=== PATIENT | male | born 1935 | race Asian ===

== ENCOUNTER → 2016-10-08 | Outpatient (CLI) | payer MEDICARE ==
[~2016-10-08] MED LIST: ASPI-496 PO; ATOR40TA78 PO; CARV3.122 PO; DOCU100C8 PO; FURO-93 PO; LOSA50TA6 PO; METF500T4 PO; POTA10TA5 PO; POTA20TA14 PO; PRED10TA PO
== END | disposition home or self-care (01) ==
LOC: CFH 13:29
PROVIDERS: ATTEND Internal Medicine Critical Care Medicine
DX: J84.9 Interstitial pulmonary disease, unspecified (principal)
CPT/HCPCS: 71250

== ENCOUNTER 2017-10-04 16:51 | Inpatient (IN) | payer MEDICARE ==
[~2017-10-04] VITALS: Ht 160 cm; Wt 86.3 kg
[~2017-10-04 16:51] MED LIST changes: +DOCU100C33 PO; -DOCU100C8 PO; -METF500T4 PO; +METF500T5 PO
[2017-10-04] MEDS ORDERED: SODIUM CHLORIDE FLUSH 10ML SYR IVF ONE (17:30)
[2017-10-04] MEDS ORDERED: ALBUTEROL/IPRATROPIUM 2.5MG/0.5MG, 3 ML NPPB ONE (17:30)
[2017-10-04] MEDS ORDERED: ALBUTEROL/IPRATROPIUM 2.5MG/0.5MG, 3 ML ONE (17:36)
[2017-10-04] MEDS ORDERED: TAMS0.4C2 PO (17:43)
[2017-10-04] MEDS ORDERED: GLIP5TAB10 PO (17:43)
[2017-10-04] MEDS ORDERED: BUDE10.22 PO (17:44)
[2017-10-04] MEDS ORDERED: ALBU18HF PO (17:45)
[2017-10-04 18:06] LABS: BASOPHILS # (AUTO) 0.03 x10^3/uL (0-0.1); BASOPHILS % (AUTO) 0 % (0-1); EOSINOPHILS # (AUTO) 0.35 x10^3/uL (0-0.4); EOSINOPHILS % (AUTO) 4 % (1-7); LYMPHOCYTES # (AUTO) 1.72 x10^3/uL (1-3.4); LYMPHOCYTES % (AUTO) 19 % (22-44); MD NO; MEAN CORPUSCULAR HEMOGLOBIN 31.3 pg (27.5-34.5); MEAN CORPUSCULAR HGB CONC 33.4 g/dL (33.2-36.2); MEAN CORPUSCULAR VOLUME 93.7 fL (81-97); MEAN PLATELET VOLUME 8.8 fL (7.4-10.4); MONOCYTES # (AUTO) 0.73 x10^3/uL (0.2-0.8); MONOCYTES % (AUTO) 8 % (2-9); NEUTROPHILS # (AUTO) 6.34 x10^3/uL (1.8-6.8); NEUTROPHILS % (AUTO) 69 % (42-75); PLATELET COUNT 232 x10^3/uL (130-400); RED BLOOD COUNT 4.52 x10^6/uL (4.38-5.82); RED CELL DISTRIBUTION WIDTH 13.5 % (9.4-14.8)
[2017-10-04 18:10] LABS: ALBUMIN 3.5 g/dL (3.4-5.0); ANION GAP 7 mmol/L (5-15); CALCIUM 8.6 mg/dL (8.5-10.1); CHLORIDE 97 mmol/L (98-107); CREATININE 1.97 mg/dL (0.7-1.3)
[2017-10-04 18:21] LABS: TROPONIN I < 0.015 ng/mL (0.000-0.045)
[2017-10-04] MEDS ORDERED: SODIUM CHLORIDE FLUSH 10ML SYR IVF PRN (19:00)
[2017-10-04] MEDS ORDERED: methylPREDNISolone SOD SUCC 125 MG/2 ML IVP ONE (19:00)
[2017-10-04] MEDS ORDERED: methylPREDNISolone SOD SUCC 125 MG/2 ML ONE (19:01)
[2017-10-04] MEDS ORDERED: SODIUM CHLORIDE 0.9% 1,000 ML IV SCH (19:15)
[2017-10-04] MEDS ORDERED: ONDANSETRON 2MG/ML, 2ML IVPush PRN (19:30)
[2017-10-04] MEDS ORDERED: BISACODYL 10 MG SUPP PR ONE (19:30)
[2017-10-04] MEDS ORDERED: ACETAMINOPHEN 325 MG TABLET PO PRN (19:30)
[2017-10-04] MEDS ORDERED: POLYETHYLENE GLYCOL 17 GM PACKET PO PRN (19:30)
[2017-10-04] MEDS ORDERED: hydrALAzine 20 MG/ML, 1ML IVPush PRN (19:30)
[2017-10-04 19:42] VITALS: BP 108/60
[2017-10-04] MEDS ORDERED: ALBUTEROL SULFATE 2.5 MG/3 ML HHN PRN (20:00)
[2017-10-04] MEDS ORDERED: ALBUTEROL SULFATE 2.5 MG/3 ML NPPB PRN (20:30)
[2017-10-04] MEDS: HEPARIN 5,000 UNITS/ML, 1ML SQ SCH (22:24)
[2017-10-04] MEDS: ATORVASTATIN 40 MG TABLET PO SCH (22:24)
[2017-10-04] MEDS: CARVEDILOL 25 MG TABLET PO SCH (22:25)
[2017-10-04] MEDS: INSULIN LISPRO 100 UNITS/ML, PEN SQ-INSULIN SCH (22:26)
[2017-10-04 23:31] LABS: MICROSCOPIC NOT IND
[2017-10-04 23:37] LABS: CULTURE INDICATED? NO
[2017-10-05 02:51] VITALS: BP 145/79
[2017-10-05 04:55] LABS: BASOPHILS # (AUTO) 0.02 x10^3/uL (0-0.1); BASOPHILS % (AUTO) 0 % (0-1); EOSINOPHILS % (AUTO) 0 % (1-7); LYMPHOCYTES # (AUTO) 1.02 x10^3/uL (1-3.4); LYMPHOCYTES % (AUTO) 13 % (22-44); MD NO; MEAN CORPUSCULAR HEMOGLOBIN 30.9 pg (27.5-34.5); MEAN CORPUSCULAR HGB CONC 32.9 g/dL (33.2-36.2); MEAN CORPUSCULAR VOLUME 93.9 fL (81-97); MEAN PLATELET VOLUME 9.2 fL (7.4-10.4); MONOCYTES # (AUTO) 0.04 x10^3/uL (0.2-0.8); MONOCYTES % (AUTO) 1 % (2-9); NEUTROPHILS # (AUTO) 6.55 x10^3/uL (1.8-6.8); NEUTROPHILS % (AUTO) 86 % (42-75); PLATELET COUNT 221 x10^3/uL (130-400); RED BLOOD COUNT 4.13 x10^6/uL (4.38-5.82); RED CELL DISTRIBUTION WIDTH 13.6 % (9.4-14.8)
[2017-10-05 05:04] LABS: ANION GAP 7 mmol/L (5-15); CALCIUM 8.4 mg/dL (8.5-10.1); CHLORIDE 99 mmol/L (98-107)
[2017-10-05 05:05] LABS: CREATININE 1.89 mg/dL (0.7-1.3)
[2017-10-05 07:52] VITALS: BP 129/78
[2017-10-05] MEDS: HEPARIN 5,000 UNITS/ML, 1ML SQ SCH ×2 (08:11→16:28)
[2017-10-05] MEDS: INSULIN LISPRO 100 UNITS/ML, PEN SQ-INSULIN SCH ×4 (08:12→20:56)
[2017-10-05] MEDS: ASPIRIN 81 MG TABLET EC PO SCH (08:12)
[2017-10-05] MEDS: CARVEDILOL 25 MG TABLET PO SCH ×2 (08:12→16:30)
[2017-10-05] MEDS: TAMSULOSIN 0.4 MG CAP.ER.24H PO SCH (08:12)
[2017-10-05] MEDS ORDERED: MAGNESIUM SULFATE IN WATER 50 ML IV ONE (10:30)
[2017-10-05 10:49] LABS: HEMOGLOBIN A1C 8.7 % (4.2-6.3)
[2017-10-05] MEDS: SODIUM CHLORIDE 0.9% 1,000 ML IV SCH ×2 (11:12→18:30)
[2017-10-05 14:00] VITALS: BP 95/55
[2017-10-05] MEDS: FLUTICASONE/VILANTEROL 100-25MCG/INH INH SCH (15:12)
[2017-10-05 19:37] VITALS: BP 106/62
[2017-10-05] MEDS: ATORVASTATIN 40 MG TABLET PO SCH (20:53)
[2017-10-06] MEDS: HEPARIN 5,000 UNITS/ML, 1ML SQ SCH ×2 (00:05→09:09)
[2017-10-06 00:58] VITALS: BP 113/72
[2017-10-06 05:15] LABS: ANION GAP 4 mmol/L (5-15); CALCIUM 8.2 mg/dL (8.5-10.1); CHLORIDE 105 mmol/L (98-107)
[2017-10-06 05:18] LABS: CREATININE 1.57 mg/dL (0.7-1.3)
[2017-10-06 05:20] LABS: BASOPHILS # (AUTO) 0.02 x10^3/uL (0-0.1); BASOPHILS % (AUTO) 0 % (0-1); EOSINOPHILS # (AUTO) 0.08 x10^3/uL (0-0.4); EOSINOPHILS % (AUTO) 1 % (1-7); LYMPHOCYTES # (AUTO) 2.16 x10^3/uL (1-3.4); LYMPHOCYTES % (AUTO) 19 % (22-44); MD NO; MEAN CORPUSCULAR HEMOGLOBIN 31.1 pg (27.5-34.5); MEAN CORPUSCULAR HGB CONC 32.8 g/dL (33.2-36.2); MEAN CORPUSCULAR VOLUME 94.9 fL (81-97); MONOCYTES # (AUTO) 0.94 x10^3/uL (0.2-0.8); MONOCYTES % (AUTO) 8 % (2-9); NEUTROPHILS # (AUTO) 8.36 x10^3/uL (1.8-6.8); NEUTROPHILS % (AUTO) 72 % (42-75); PLATELET COUNT 211 x10^3/uL (130-400); RED BLOOD COUNT 3.91 x10^6/uL (4.38-5.82); RED CELL DISTRIBUTION WIDTH 13.6 % (9.4-14.8)
[2017-10-06] MEDS: INSULIN LISPRO 100 UNITS/ML, PEN SQ-INSULIN SCH ×2 (07:29→11:08)
[2017-10-06 08:06] VITALS: BP 104/64
[2017-10-06] MEDS: TAMSULOSIN 0.4 MG CAP.ER.24H PO SCH (09:09)
[2017-10-06] MEDS: CARVEDILOL 25 MG TABLET PO SCH (09:09)
[2017-10-06] MEDS: ASPIRIN 81 MG TABLET EC PO SCH (09:09)
[2017-10-06] MEDS: FLUTICASONE/VILANTEROL 100-25MCG/INH INH SCH (09:10)
[2017-10-06] MEDS ORDERED: FUROSEMIDE 20 MG TABLET PO SCH (10:30)
[2017-10-06] MEDS ORDERED: POLY17PO5 PO (11:51)
[2017-10-06] MEDS ORDERED: DOCU-131 PO (11:51)
[2017-10-06 13:56] VITALS: BP 93/56
== END 2017-10-06 14:28 | disposition home or self-care (01) | DRG 388 ==
LOC: ED 18:02 → EDIP 18:51 → 3NW 19:40
PROVIDERS: ADMIT Hospitalist; ATTEND Hospitalist
DX: K56.0 Paralytic ileus (principal); N17.0 Acute kidney failure with tubular necrosis; J96.11 Chronic respiratory failure with hypoxia; J44.1 Chronic obstructive pulmonary disease with (acute) exacerbation; Z99.81 Dependence on supplemental oxygen; Z87.891 Personal history of nicotine dependence; Z87.01 Personal history of pneumonia (recurrent); E11.22 Type 2 diabetes mellitus with diabetic chronic kidney disease; G47.33 Obstructive sleep apnea (adult) (pediatric); E11.65 Type 2 diabetes mellitus with hyperglycemia; R00.0 Tachycardia, unspecified; N18.9 Chronic kidney disease, unspecified; N40.0 Benign prostatic hyperplasia without lower urinary tract symptoms; E83.42 Hypomagnesemia; I12.9 Hypertensive chronic kidney disease with stage 1 through stage 4 chronic kidney disease, or unspecified chronic kidney disease; T38.0X5A Adverse effect of glucocorticoids and synthetic analogues, initial encounter; Z85.038 Personal history of other malignant neoplasm of large intestine; Z90.49 Acquired absence of other specified parts of digestive tract
CPT/HCPCS: 36415; 71046; 74018; 80048; 81003; 82040; 82962; 83036; 83735; 84100; 84484; 85025; 93005; 93306; 94640; 96374; J1644; J7620; J1815; J2930; J7030

== ENCOUNTER → 2018-04-07 | Outpatient (CLI) | payer MEDICARE ==
[~2018-04-07] MED LIST changes: +ALBU18HF PO; +BUDE10.22 PO; +DOCU-131 PO; +GLIP5TAB10 PO; -LOSA50TA6 PO; +LOSA50TA7 PO; +METF500T17 PO; -METF500T5 PO; +POLY17PO5 PO; +TAMS0.4C2 PO
== END | disposition home or self-care (01) ==
LOC: CVU 11:08
PROVIDERS: ATTEND Physician Assistant Medical
DX: R60.9 Edema, unspecified (principal); M79.601 Pain in right arm; J44.9 Chronic obstructive pulmonary disease, unspecified; E11.9 Type 2 diabetes mellitus without complications; I10 Essential (primary) hypertension; Z85.038 Personal history of other malignant neoplasm of large intestine
CPT/HCPCS: 93971

== ENCOUNTER 2018-09-05 19:53 | Inpatient (IN) | payer MEDICARE ==
[~2018-09-05] VITALS: Ht 172.7 cm; Wt 76.9 kg
[~2018-09-05 19:53] MED LIST changes: +ETOMIDATE 20 MG/10 ML ONE; +LOSA50TA14 PO; -LOSA50TA7 PO; +MIDAZOLAM 1 MG/ML, 5ML ONE; +PROPOFOL 10 MG/ML, 100ML IV ONE; +PROPOFOL 10 MG/ML, 20ML ONE; +ROCURONIUM 10 MG/ML,10ML ONE; +SUCCINYLCHOLINE 20 MG/ML, 10ML ONE
[2018-09-05] MEDS ORDERED: SODIUM CHLORIDE FLUSH 10ML SYR IVF ONE (20:00)
--- NOTE | 2018-09-05 20:11 | NUR ---
PT BIB [facility] WITH C/O SOB X TODAY WITH HX COPD ON HOME O2 OF 3 L REQUIRING 6L TODAY Addendum: 09/05/18 at 2010 by JEAN-PIERRE PT PLACED ON BIPAP BY RT
--- NOTE | 2018-09-05 20:45 | NUR ---
pt tolerating bipap in nad at this time
[2018-09-05 20:57] LABS: BASOPHILS # (AUTO) 0.02 x10^3/uL (0-0.1); BASOPHILS % (AUTO) 0 % (0-1); EOSINOPHILS # (AUTO) 0.04 x10^3/uL (0-0.4); EOSINOPHILS % (AUTO) 0 % (1-7); LYMPHOCYTES # (AUTO) 1.41 x10^3/uL (1-3.4); LYMPHOCYTES % (AUTO) 8 % (22-44); MD NO; MEAN CORPUSCULAR HEMOGLOBIN 30.3 pg (27.5-34.5); MEAN CORPUSCULAR HGB CONC 31.8 g/dL (33.2-36.2); MEAN CORPUSCULAR VOLUME 95.1 fL (81-97); MEAN PLATELET VOLUME 8.1 fL (7.4-10.4); MONOCYTES # (AUTO) 0.72 x10^3/uL (0.2-0.8); MONOCYTES % (AUTO) 4 % (2-9); NEUTROPHILS # (AUTO) 15.67 x10^3/uL (1.8-6.8); NEUTROPHILS % (AUTO) 88 % (42-75); PLATELET COUNT 244 x10^3/uL (130-400); RED BLOOD COUNT 4.55 x10^6/uL (4.38-5.82); RED CELL DISTRIBUTION WIDTH 13.9 % (9.4-14.8)
[2018-09-05] MEDS ORDERED: ALBUTEROL SULFATE 2.5 MG/3 ML NPPB ONE (21:00)
[2018-09-05 21:07] LABS: INTERNATIONAL NORMALIZED RATIO 0.89 (0.93-1.1); PROTHROMBIN TIME 9.4 Seconds (9.6-11.5)
[2018-09-05 21:08] LABS: ALANINE AMINOTRANSFERASE 55 U/L (12-78); ALBUMIN 3.4 g/dL (3.4-5.0); ANION GAP 12 mmol/L (5-15); CALCIUM 8.5 mg/dL (8.5-10.1); CHLORIDE 86 mmol/L (98-107); CREATININE 1.55 mg/dL (0.7-1.3)
[2018-09-05 21:12] LABS: ALKALINE PHOSPHATASE 100 U/L (45-117); BILIRUBIN,TOTAL 0.5 mg/dL (0.2-1.0); TOTAL PROTEIN 7.6 g/dL (6.4-8.2); TROPONIN I 0.087 ng/mL (0.000-0.045)
[2018-09-05] MEDS ORDERED: methylPREDNISolone SOD SUCC 125 MG/2 ML ONE (21:20)
[2018-09-05] MEDS ORDERED: PIPERACILLIN/TAZO/PMX 3.375GM 50 ML ONE (21:20)
[2018-09-05] MEDS ORDERED: SODIUM CHLORIDE 0.9%, 500ML IVBOLUS ONE ×2 (21:30→23:30)
[2018-09-05] MEDS ORDERED: PIPERACILLIN/TAZO/PMX 3.375GM 50 ML IV ONE (21:30)
[2018-09-05] MEDS ORDERED: methylPREDNISolone SOD SUCC 125 MG/2 ML IVPush ONE (21:30)
[2018-09-05] MEDS ORDERED: VANCOMYCIN 2,000 MG in SODIUM CHLORIDE 0.9% 500 ML IV ONE (21:30)
[2018-09-05] MEDS ORDERED: VANCOMYCIN PER PHARMACY MC PRN ×2 (21:30→23:30)
[2018-09-05] MEDS ORDERED: POTASSIUM CHLORIDE 20 MEQ in SODIUM CHLORIDE 0.9% 250 ML IV ONE (22:00)
[2018-09-05] MEDS ORDERED: ETOMIDATE 20 MG/10 ML IVPush ONE (22:00)
[2018-09-05] MEDS ORDERED: SUCCINYLCHOLINE 20 MG/ML, 10ML IVPush ONE (22:00)
--- NOTE | 2018-09-05 22:14 | NUR ---
PT GIVEN 20 ETOMIDATE AND 100MG SUCC ,
[2018-09-05] MEDS ORDERED: PROPOFOL 100 ML IV PRN (22:19)
--- NOTE | 2018-09-05 22:32 | NUR ---
pt intubated at this time by dr martinez medicated per emar tolerated well report to timothy at this time
--- NOTE | 2018-09-05 22:47 | NUR ---
dentures placed in denture cup, urine sent to lab
--- NOTE | 2018-09-05 22:59 | NUR ---
ASSUMED CARE FOR THIS PT.
--- NOTE | 2018-09-05 23:07 | NUR ---
[phone] DAUGHTER'S PHONE NUMBER
--- NOTE | 2018-09-05 23:17 | NUR ---
ALL BELONGINGS ARE WITH FAMILY INCLUDING DENTURES. PT NOW SEDATED AND RIDING VENT WITH VSS AND IN NO DISTRESS.
[2018-09-05] MEDS ORDERED: POTASSIUM CHLORIDE 20 MEQ in SODIUM CHLORIDE 0.9% 1,000 ML IV SCH (23:30)
[2018-09-05] MEDS ORDERED: SENNA/DOCUSATE TABLET NG PRN (23:30)
[2018-09-05] MEDS ORDERED: ZOSYN PER PHARMACY MC PRN (23:30)
[2018-09-05] MEDS ORDERED: BISACODYL 10 MG SUPP PR PRN (23:30)
[2018-09-05] MEDS ORDERED: LIDOCAINE-MPF 1%, 2ML ENDO PRN (23:30)
[2018-09-05] MEDS ORDERED: PHARMACY MAY ADJ FOR RENAL FX MC SCH (23:30)
[2018-09-05] MEDS: HEPARIN 5,000 UNITS/ML, 1ML SQ SCH (23:30)
[2018-09-05] MEDS: methylPREDNISolone SOD SUCC 40 MG/ML IV SCH (23:30)
[2018-09-05 23:34] LABS: MICROSCOPIC AUTO
[2018-09-05 23:35] LABS: CULTURE INDICATED? NO
[2018-09-05] MEDS ORDERED: HEPARIN 5,000 UNITS/ML, 1ML ONE (23:59)
[2018-09-06] MEDS ORDERED: methylPREDNISolone SOD SUCC 125 MG/2 ML ONE
[2018-09-06] MEDS ORDERED: methylPREDNISolone SOD SUCC 40 MG/ML ONE (00:06)
--- NOTE | 2018-09-06 00:19 | NUR ---
REPORT CALLED TO ICU AND AWAITING TRANSPORT TO CT THEN ICU #3
--- NOTE | 2018-09-06 00:44 | NUR ---
PT TO ICU 3
[2018-09-06] MEDS ORDERED: PHARMACOKINETIC MONITORING MC PRN (01:30)
[2018-09-06] MEDS ORDERED: PHARMACOKINETIC CONSULTATION MC ONE (01:30)
[2018-09-06 02:03] VITALS: BP 136/73
[2018-09-06] MEDS ORDERED: ALBUTEROL/IPRATROPIUM 2.5MG/0.5MG, 3 ML ONE (02:20)
[2018-09-06] MEDS: ALBUTEROL/IPRATROPIUM 2.5MG/0.5MG, 3 ML NPPB SCH ×6 (02:30→23:00)
[2018-09-06] MEDS: PIPERACILLIN/TAZO/PMX 3.375GM 50 ML IV SCH ×4 (03:06→21:35)
[2018-09-06] MEDS: PROPOFOL 100 ML IV PRN ×4 (03:06→19:28)
[2018-09-06 04:00] VITALS: BP 110/52
[2018-09-06 06:15] LABS: BASOPHILS # (AUTO) 0.01 x10^3/uL (0-0.1); BASOPHILS % (AUTO) 0 % (0-1); EOSINOPHILS % (AUTO) 0 % (1-7); LYMPHOCYTES # (AUTO) 1.08 x10^3/uL (1-3.4); LYMPHOCYTES % (AUTO) 8 % (22-44); MD NO; MEAN CORPUSCULAR HEMOGLOBIN 30.2 pg (27.5-34.5); MEAN CORPUSCULAR VOLUME 94.3 fL (81-97); MEAN PLATELET VOLUME 8.5 fL (7.4-10.4); MONOCYTES # (AUTO) 0.09 x10^3/uL (0.2-0.8); MONOCYTES % (AUTO) 1 % (2-9); NEUTROPHILS % (AUTO) 92 % (42-75); PLATELET COUNT 189 x10^3/uL (130-400); RED BLOOD COUNT 4.37 x10^6/uL (4.38-5.82); RED CELL DISTRIBUTION WIDTH 13.7 % (9.4-14.8)
[2018-09-06 06:18] LABS: ANION GAP 11 mmol/L (5-15); CALCIUM 8.6 mg/dL (8.5-10.1); CHLORIDE 94 mmol/L (98-107); CREATININE 1.44 mg/dL (0.7-1.3)
[2018-09-06 06:25] LABS: OSMOLALITY,URINE 131 mOsm/kg (500-850)
[2018-09-06] MEDS: HEPARIN 5,000 UNITS/ML, 1ML SQ SCH ×3 (07:54→23:11)
[2018-09-06] MEDS: methylPREDNISolone SOD SUCC 40 MG/ML IV SCH ×3 (07:54→23:11)
--- NOTE | 2018-09-06 12:06 | NUR ---
TF GOAL: w/ propofol: PROMOTE @ 70ml/hr off propofol: PROMOTE @ 75ml/hr
[2018-09-06] MEDS: INSULIN LISPRO 100 UNITS/ML, PEN SQ-INSULIN SCH ×3 (13:39→23:05)
[2018-09-06] MEDS: SODIUM CHLORIDE 0.9% 1,000 ML IV SCH (17:37)
[2018-09-06] MEDS: LACTULOSE 20 GM/30 ML UDC NG PRN (19:15)
[2018-09-06] MEDS ORDERED: VANCOMYCIN 1,600 MG in SODIUM CHLORIDE 0.9% 250 ML IV SCH (22:00)
[2018-09-07] MEDS: PROPOFOL 100 ML IV PRN ×4 (02:18→20:57)
[2018-09-07] MEDS: SODIUM CHLORIDE 0.9% 1,000 ML IV SCH ×2 (02:37→12:40)
[2018-09-07] MEDS: PIPERACILLIN/TAZO/PMX 3.375GM 50 ML IV SCH ×4 (02:50→20:43)
[2018-09-07] MEDS: INSULIN LISPRO 100 UNITS/ML, PEN SQ-INSULIN SCH ×4 (02:56→21:10)
[2018-09-07] MEDS: ALBUTEROL/IPRATROPIUM 2.5MG/0.5MG, 3 ML NPPB SCH ×6 (03:00→22:34)
[2018-09-07 04:00] VITALS: BP 142/71
[2018-09-07 06:37] LABS: ANION GAP 8 mmol/L (5-15); CALCIUM 8.6 mg/dL (8.5-10.1); CHLORIDE 106 mmol/L (98-107); CREATININE 1.39 mg/dL (0.7-1.3)
[2018-09-07 06:50] LABS: MEAN CORPUSCULAR HEMOGLOBIN 30.3 pg (27.5-34.5); MEAN CORPUSCULAR HGB CONC 32.3 g/dL (33.2-36.2); MEAN CORPUSCULAR VOLUME 93.7 fL (81-97); MEAN PLATELET VOLUME 8.4 fL (7.4-10.4); PLATELET COUNT 210 x10^3/uL (130-400); RED BLOOD COUNT 3.84 x10^6/uL (4.38-5.82); RED CELL DISTRIBUTION WIDTH 13.9 % (9.4-14.8)
[2018-09-07 07:17] LABS: BASOPHILS # (AUTO) 0.01 x10^3/uL (0-0.1); BASOPHILS % (AUTO) 0 % (0-1); EOSINOPHILS % (AUTO) 0 % (1-7); LYMPHOCYTES # (AUTO) 0.65 x10^3/uL (1-3.4); LYMPHOCYTES % (AUTO) 6 % (22-44); MD SCAN; MONOCYTES # (AUTO) 0.79 x10^3/uL (0.2-0.8); MONOCYTES % (AUTO) 7 % (2-9); NEUTROPHILS # (AUTO) 9.98 x10^3/uL (1.8-6.8); NEUTROPHILS % (AUTO) 87 % (42-75)
[2018-09-07] MEDS: methylPREDNISolone SOD SUCC 40 MG/ML IV SCH ×2 (08:06→14:42)
[2018-09-07] MEDS: HEPARIN 5,000 UNITS/ML, 1ML SQ SCH ×3 (08:06→23:34)
[2018-09-07] MEDS ORDERED: hydrALAzine 20 MG/ML, 1ML IV PRN (09:30)
[2018-09-07] MEDS: FAMOTIDINE 20 MG/2 ML IVPush SCH (09:49)
[2018-09-07] MEDS: FENTANYL PF 100 MCG/2ML IV PRN ×2 (20:21→22:41)
[2018-09-07] MEDS ORDERED: SODIUM CHLORIDE 0.9% 1,000 ML IV SCH (23:30)
[2018-09-08] MEDS: PROPOFOL 100 ML IV PRN ×4 (00:48→21:13)
[2018-09-08] MEDS: PIPERACILLIN/TAZO/PMX 3.375GM 50 ML IV SCH ×4 (02:47→21:05)
[2018-09-08] MEDS: INSULIN LISPRO 100 UNITS/ML, PEN SQ-INSULIN SCH (02:47)
[2018-09-08] MEDS: ALBUTEROL/IPRATROPIUM 2.5MG/0.5MG, 3 ML NPPB SCH ×6 (03:00→22:14)
[2018-09-08] MEDS ORDERED: methylPREDNISolone SOD SUCC 40 MG/ML IV SCH (03:30)
[2018-09-08 04:00] VITALS: BP 117/56
[2018-09-08 04:42] LABS: BASOPHILS # (AUTO) 0.04 x10^3/uL (0-0.1); BASOPHILS % (AUTO) 0 % (0-1); EOSINOPHILS % (AUTO) 0 % (1-7); LYMPHOCYTES # (AUTO) 0.98 x10^3/uL (1-3.4); LYMPHOCYTES % (AUTO) 7 % (22-44); MD NO; MEAN CORPUSCULAR HGB CONC 32.1 g/dL (33.2-36.2); MEAN CORPUSCULAR VOLUME 96.4 fL (81-97); MEAN PLATELET VOLUME 8.5 fL (7.4-10.4); MONOCYTES # (AUTO) 0.98 x10^3/uL (0.2-0.8); MONOCYTES % (AUTO) 7 % (2-9); NEUTROPHILS # (AUTO) 11.63 x10^3/uL (1.8-6.8); NEUTROPHILS % (AUTO) 85 % (42-75); PLATELET COUNT 212 x10^3/uL (130-400); RED BLOOD COUNT 3.85 x10^6/uL (4.38-5.82); RED CELL DISTRIBUTION WIDTH 14.4 % (9.4-14.8)
[2018-09-08 04:54] LABS: ANION GAP 6 mmol/L (5-15); CALCIUM 8.2 mg/dL (8.5-10.1); CHLORIDE 106 mmol/L (98-107)
[2018-09-08 04:59] LABS: CREATININE 1.27 mg/dL (0.7-1.3); TRIGLYCERIDES 460 mg/dL (50-200)
[2018-09-08] MEDS ORDERED: FUROSEMIDE 20 MG/2 ML IV ONE (09:30)
[2018-09-08] MEDS: HEPARIN 5,000 UNITS/ML, 1ML SQ SCH ×3 (09:58→23:38)
[2018-09-08] MEDS: FAMOTIDINE 20 MG/2 ML IVPush SCH (09:59)
[2018-09-08] MEDS ORDERED: SODIUM CHLORIDE 0.9% 1,000 ML IV SCH (10:00)
[2018-09-08] MEDS: BUDESONIDE 0.5 MG/2 ML INHA NPPB SCH ×2 (10:05→18:43)
[2018-09-08] MEDS: methylPREDNISolone SOD SUCC 125 MG/2 ML IVPush SCH ×2 (11:53→21:05)
[2018-09-08] MEDS: INSULIN LISPRO SQ-INSULIN SCH ×3 (12:04→22:56)
[2018-09-08] MEDS: CARVEDILOL 3.125 MG TABLET PO SCH (18:02)
[2018-09-08] MEDS: INSULIN GLARGINE 100 UNITS/ML, PEN SQ-INSULIN SCH (21:05)
[2018-09-09] MEDS: PROPOFOL 100 ML IV PRN ×3 (01:06→21:57)
[2018-09-09] MEDS: ALBUTEROL/IPRATROPIUM 2.5MG/0.5MG, 3 ML NPPB SCH ×6 (02:06→22:24)
[2018-09-09] MEDS: PIPERACILLIN/TAZO/PMX 3.375GM 50 ML IV SCH ×4 (03:05→21:11)
[2018-09-09] MEDS: methylPREDNISolone SOD SUCC 125 MG/2 ML IVPush SCH (03:05)
[2018-09-09 04:28] VITALS: BP 157/76
[2018-09-09 04:38] LABS: MEAN CORPUSCULAR HEMOGLOBIN 31.1 pg (27.5-34.5); MEAN CORPUSCULAR HGB CONC 32.4 g/dL (33.2-36.2); MEAN CORPUSCULAR VOLUME 95.8 fL (81-97); MEAN PLATELET VOLUME 8.5 fL (7.4-10.4); PLATELET COUNT 207 x10^3/uL (130-400); RED BLOOD COUNT 3.97 x10^6/uL (4.38-5.82); RED CELL DISTRIBUTION WIDTH 14.5 % (9.4-14.8)
[2018-09-09 04:43] LABS: ANION GAP 4 mmol/L (5-15); CALCIUM 8.4 mg/dL (8.5-10.1); CHLORIDE 100 mmol/L (98-107); CREATININE 1.36 mg/dL (0.7-1.3)
[2018-09-09] MEDS: INSULIN LISPRO SQ-INSULIN SCH ×4 (05:23→21:15)
[2018-09-09] MEDS: CARVEDILOL 3.125 MG TABLET PO SCH (05:23)
[2018-09-09 05:40] LABS: BASOPHILS # (AUTO) 0.07 x10^3/uL (0-0.1); BASOPHILS % (AUTO) 1 % (0-1); EOSINOPHILS % (AUTO) 0 % (1-7); LYMPHOCYTES # (AUTO) 0.88 x10^3/uL (1-3.4); LYMPHOCYTES % (AUTO) 6 % (22-44); MD SCAN; MONOCYTES % (AUTO) 5 % (2-9); NEUTROPHILS # (AUTO) 12.79 x10^3/uL (1.8-6.8); NEUTROPHILS % (AUTO) 89 % (42-75)
[2018-09-09] MEDS: BUDESONIDE 0.5 MG/2 ML INHA NPPB SCH ×2 (07:29→19:29)
[2018-09-09] MEDS: FAMOTIDINE 20 MG/2 ML IVPush SCH (09:27)
[2018-09-09] MEDS: HEPARIN 5,000 UNITS/ML, 1ML SQ SCH ×3 (09:27→23:30)
[2018-09-09] MEDS: FUROSEMIDE 20 MG/2 ML IV SCH ×2 (09:28→21:11)
[2018-09-09] MEDS: methylPREDNISolone SOD SUCC 40 MG/ML IVPush SCH ×2 (11:26→19:52)
[2018-09-09] MEDS: CARVEDILOL 25 MG TABLET PO SCH (17:58)
[2018-09-09] MEDS: INSULIN GLARGINE 100 UNITS/ML, PEN SQ-INSULIN SCH (21:15)
[2018-09-10] MEDS: PROPOFOL 100 ML IV PRN ×4 (01:11→15:13)
[2018-09-10] MEDS: ALBUTEROL/IPRATROPIUM 2.5MG/0.5MG, 3 ML NPPB SCH ×6 (02:27→22:30)
[2018-09-10] MEDS: methylPREDNISolone SOD SUCC 40 MG/ML IVPush SCH ×3 (02:48→20:23)
[2018-09-10] MEDS: PIPERACILLIN/TAZO/PMX 3.375GM 50 ML IV SCH ×4 (02:48→20:43)
[2018-09-10] MEDS: INSULIN LISPRO SQ-INSULIN SCH ×4 (02:52→23:20)
[2018-09-10 04:00] VITALS: BP 130/60
[2018-09-10 04:19] LABS: MEAN CORPUSCULAR HEMOGLOBIN 30.4 pg (27.5-34.5); MEAN CORPUSCULAR HGB CONC 32.3 g/dL (33.2-36.2); MEAN CORPUSCULAR VOLUME 94.3 fL (81-97); MEAN PLATELET VOLUME 8.6 fL (7.4-10.4); PLATELET COUNT 207 x10^3/uL (130-400); RED BLOOD COUNT 4.44 x10^6/uL (4.38-5.82); RED CELL DISTRIBUTION WIDTH 14.4 % (9.4-14.8)
[2018-09-10 04:29] LABS: ANION GAP 4 mmol/L (5-15); CALCIUM 8.5 mg/dL (8.5-10.1); CHLORIDE 94 mmol/L (98-107); CREATININE 1.41 mg/dL (0.7-1.3)
[2018-09-10 04:40] LABS: MD YES
[2018-09-10 04:42] LABS: <RBC MORPHOLOGY> NORMAL; BAND#(MANUAL) 0.94 x10^3/uL; BANDS%(MANUAL) 6 % (0-7); LYMPH#(MANUAL) 0.62 x10^3/uL (1-3.4); LYMPHS% (MANUAL) 4 % (22-44); METAMYELOCYTES# (MANUAL) 0.78 x10^3/uL (0-0); METAMYELOCYTES% (MANUAL) 5 % (0-1); MONOS#(MANUAL) 0.47 x10^3/uL (0.3-2.7); MONOS% (MANUAL) 3 % (2-9); MYELOCYTES# (MANUAL) 0.31 x10^3/uL (0-0); MYELOCYTES% (MANUAL) 2 % (0-0); NRBC % (MANUAL) 1 % (0-1); SEG#(MANUAL) 12.48 x10^3/uL (1.8-6.8); SEGS% (MANUAL) 80 % (42-75)
[2018-09-10 04:43] LABS: <PLATELET ESTIMATE> ADEQUATE; <PLT MORPHOLOGY> NORMAL PLT MORPH
[2018-09-10] MEDS: CARVEDILOL 25 MG TABLET PO SCH ×2 (05:46→18:39)
[2018-09-10] MEDS: BUDESONIDE 0.5 MG/2 ML INHA NPPB SCH ×2 (07:40→22:30)
[2018-09-10] MEDS: HEPARIN 5,000 UNITS/ML, 1ML SQ SCH ×3 (08:23→23:20)
[2018-09-10] MEDS: FUROSEMIDE 20 MG/2 ML IV SCH (08:51)
[2018-09-10] MEDS: FAMOTIDINE 20 MG/2 ML IVPush SCH (08:51)
[2018-09-10] MEDS ORDERED: FUROSEMIDE 20 MG/2 ML IV ONE (09:30)
[2018-09-10] MEDS: FUROSEMIDE 40 MG/4 ML IV SCH (20:24)
[2018-09-10] MEDS: INSULIN GLARGINE 100 UNITS/ML, PEN SQ-INSULIN SCH (23:20)
[2018-09-11] MEDS: ALBUTEROL/IPRATROPIUM 2.5MG/0.5MG, 3 ML NPPB SCH ×6 (02:10→22:16)
[2018-09-11] MEDS: PIPERACILLIN/TAZO/PMX 3.375GM 50 ML IV SCH ×4 (03:32→20:36)
[2018-09-11] MEDS: LACTULOSE 20 GM/30 ML UDC NG PRN (03:40)
[2018-09-11 04:00] VITALS: BP 143/88
[2018-09-11] MEDS: methylPREDNISolone SOD SUCC 40 MG/ML IVPush SCH ×3 (04:24→20:09)
[2018-09-11] MEDS: PROPOFOL 100 ML IV PRN ×2 (04:26→14:08)
[2018-09-11 04:30] LABS: MEAN CORPUSCULAR HEMOGLOBIN 30.4 pg (27.5-34.5); MEAN CORPUSCULAR VOLUME 95.1 fL (81-97); MEAN PLATELET VOLUME 9.9 fL (7.4-10.4); PLATELET COUNT 224 x10^3/uL (130-400); RED BLOOD COUNT 4.47 x10^6/uL (4.38-5.82); RED CELL DISTRIBUTION WIDTH 14.6 % (9.4-14.8)
[2018-09-11 04:34] LABS: MD YES
[2018-09-11 04:45] LABS: BAND#(MANUAL) 0.17 x10^3/uL; BANDS%(MANUAL) 1 % (0-7); LYMPH#(MANUAL) 2.37 x10^3/uL (1-3.4); LYMPHS% (MANUAL) 14 % (22-44); MONOS#(MANUAL) 0.85 x10^3/uL (0.3-2.7); MONOS% (MANUAL) 5 % (2-9); MYELOCYTES# (MANUAL) 0.34 x10^3/uL (0-0); MYELOCYTES% (MANUAL) 2 % (0-0); NRBC % (MANUAL) 2 % (0-1); SEG#(MANUAL) 13.18 x10^3/uL (1.8-6.8); SEGS% (MANUAL) 78 % (42-75)
[2018-09-11 04:46] LABS: <PLATELET ESTIMATE> ADEQUATE; <PLT MORPHOLOGY> NORMAL PLT MORPH; ANISOCYTOSIS 1+
[2018-09-11] MEDS: INSULIN LISPRO SQ-INSULIN SCH ×4 (04:56→23:30)
[2018-09-11 05:12] LABS: ANION GAP 3 mmol/L (5-15); CALCIUM 8.1 mg/dL (8.5-10.1); CHLORIDE 93 mmol/L (98-107); TRIGLYCERIDES 283 mg/dL (50-200)
[2018-09-11] MEDS: CARVEDILOL 25 MG TABLET PO SCH ×2 (05:46→18:35)
[2018-09-11] MEDS: BUDESONIDE 0.5 MG/2 ML INHA NPPB SCH ×2 (06:30→19:00)
[2018-09-11] MEDS: HEPARIN 5,000 UNITS/ML, 1ML SQ SCH ×3 (07:34→23:34)
[2018-09-11] MEDS: FUROSEMIDE 40 MG/4 ML IV SCH ×2 (09:13→20:09)
[2018-09-11] MEDS: FAMOTIDINE 20 MG/2 ML IVPush SCH (09:13)
[2018-09-11] MEDS: INSULIN GLARGINE 100 UNITS/ML, PEN SQ-INSULIN SCH ×2 (09:14→20:14)
[2018-09-11] MEDS: SENNA 176 MG/5 ML ORAL SOL NG PRN (09:22)
[2018-09-12] MEDS: PROPOFOL 100 ML IV PRN (00:39)
[2018-09-12] MEDS: ALBUTEROL/IPRATROPIUM 2.5MG/0.5MG, 3 ML NPPB SCH ×6 (01:20→22:25)
[2018-09-12] MEDS: PIPERACILLIN/TAZO/PMX 3.375GM 50 ML IV SCH ×4 (03:28→23:12)
[2018-09-12 04:00] VITALS: BP 132/68
[2018-09-12] MEDS: methylPREDNISolone SOD SUCC 40 MG/ML IVPush SCH (04:06)
[2018-09-12] MEDS: INSULIN LISPRO SQ-INSULIN SCH ×4 (04:09→22:21)
[2018-09-12] MEDS: LACTULOSE 20 GM/30 ML UDC NG PRN (04:13)
[2018-09-12 04:25] LABS: MEAN CORPUSCULAR HEMOGLOBIN 30.8 pg (27.5-34.5); MEAN CORPUSCULAR HGB CONC 32.5 g/dL (33.2-36.2); MEAN CORPUSCULAR VOLUME 94.8 fL (81-97); MEAN PLATELET VOLUME 9.3 fL (7.4-10.4); PLATELET COUNT 206 x10^3/uL (130-400); RED BLOOD COUNT 4.37 x10^6/uL (4.38-5.82); RED CELL DISTRIBUTION WIDTH 14.9 % (9.4-14.8)
[2018-09-12 04:38] LABS: ANION GAP 3 mmol/L (5-15); CALCIUM 8.2 mg/dL (8.5-10.1); CHLORIDE 94 mmol/L (98-107); CREATININE 1.66 mg/dL (0.7-1.3)
[2018-09-12] MEDS: AcetaZOLAMIDE INJ 500 MG IVPush SCH ×2 (05:29→17:44)
[2018-09-12] MEDS: CARVEDILOL 25 MG TABLET PO SCH ×2 (05:30→17:42)
[2018-09-12 05:37] LABS: MD YES
[2018-09-12 05:40] LABS: ANISOCYTOSIS 1+; BAND#(MANUAL) 0.33 x10^3/uL; BANDS%(MANUAL) 2 % (0-7); LYMPH#(MANUAL) 0.66 x10^3/uL (1-3.4); LYMPHS% (MANUAL) 4 % (22-44); MONOS#(MANUAL) 0.83 x10^3/uL (0.3-2.7); MONOS% (MANUAL) 5 % (2-9); MYELOCYTES% (MANUAL) 3 % (0-0); NRBC % (MANUAL) 1 % (0-1); POLYCHROMASIA 1+; SEG#(MANUAL) 14.19 x10^3/uL (1.8-6.8); SEGS% (MANUAL) 86 % (42-75)
[2018-09-12 05:41] LABS: <PLATELET ESTIMATE> ADEQUATE; <PLT MORPHOLOGY> NORMAL PLT MORPH
[2018-09-12] MEDS: BUDESONIDE 0.5 MG/2 ML INHA NPPB SCH ×2 (06:50→19:20)
[2018-09-12] MEDS: HEPARIN 5,000 UNITS/ML, 1ML SQ SCH ×2 (07:59→17:42)
[2018-09-12] MEDS ORDERED: FAMOTIDINE 40 MG/5 ML ORAL SUSP NG SCH (09:00)
[2018-09-12] MEDS ORDERED: INSULIN GLARGINE 100 UNITS/ML, PEN SQ-INSULIN SCH (09:00)
[2018-09-12] MEDS: FUROSEMIDE 40 MG/4 ML IV SCH (09:33)
[2018-09-12] MEDS: FAMOTIDINE 20 MG/2 ML IVPush SCH (09:33)
[2018-09-12] MEDS ORDERED: LIDOCAINE-MPF 1%, 5ML ONE (14:55)
[2018-09-12] MEDS: INSULIN GLARGINE 100 UNITS/ML, PEN SQ-INSULIN SCH (22:11)
[2018-09-12] MEDS: SENNA 176 MG/5 ML ORAL SOL NG PRN (22:11)
[2018-09-13] MEDS: PROPOFOL 100 ML IV PRN (01:25)
[2018-09-13] MEDS: HEPARIN 5,000 UNITS/ML, 1ML SQ SCH ×3 (01:25→17:21)
[2018-09-13] MEDS: ALBUTEROL/IPRATROPIUM 2.5MG/0.5MG, 3 ML NPPB SCH ×4 (03:00→19:10)
[2018-09-13 04:00] VITALS: BP 105/55
[2018-09-13 04:41] LABS: MEAN CORPUSCULAR HEMOGLOBIN 30.9 pg (27.5-34.5); MEAN CORPUSCULAR HGB CONC 32.1 g/dL (33.2-36.2); MEAN CORPUSCULAR VOLUME 96.1 fL (81-97); MEAN PLATELET VOLUME 9.3 fL (7.4-10.4); PLATELET COUNT 178 x10^3/uL (130-400); RED BLOOD COUNT 4.34 x10^6/uL (4.38-5.82); RED CELL DISTRIBUTION WIDTH 15.1 % (9.4-14.8)
[2018-09-13 04:52] LABS: ANION GAP 6 mmol/L (5-15); CALCIUM 8.2 mg/dL (8.5-10.1); CHLORIDE 97 mmol/L (98-107)
[2018-09-13 04:53] LABS: CREATININE 1.71 mg/dL (0.7-1.3)
[2018-09-13] MEDS: PIPERACILLIN/TAZO/PMX 3.375GM 50 ML IV SCH ×4 (04:59→21:55)
[2018-09-13] MEDS: LACTULOSE 20 GM/30 ML UDC NG PRN (05:00)
[2018-09-13] MEDS: AcetaZOLAMIDE INJ 500 MG IVPush SCH ×2 (05:00→17:24)
[2018-09-13] MEDS: INSULIN LISPRO SQ-INSULIN SCH ×4 (05:00→22:04)
[2018-09-13 05:44] LABS: MD YES
[2018-09-13 05:45] LABS: BAND#(MANUAL) 0.21 x10^3/uL; BANDS%(MANUAL) 1 % (0-7); EOS#(MANUAL) 0.84 x10^3/uL (0.0-0.4); EOS% (MANUAL) 4 % (1-7); LYMPH#(MANUAL) 1.69 x10^3/uL (1-3.4); LYMPHS% (MANUAL) 8 % (22-44); METAMYELOCYTES# (MANUAL) 0.21 x10^3/uL (0-0); METAMYELOCYTES% (MANUAL) 1 % (0-1); MONOS#(MANUAL) 1.06 x10^3/uL (0.3-2.7); MONOS% (MANUAL) 5 % (2-9); MYELOCYTES# (MANUAL) 0.21 x10^3/uL (0-0); MYELOCYTES% (MANUAL) 1 % (0-0); SEG#(MANUAL) 16.88 x10^3/uL (1.8-6.8); SEGS% (MANUAL) 80 % (42-75)
[2018-09-13 05:46] LABS: <PLATELET ESTIMATE> ADEQUATE; <PLT MORPHOLOGY> NORMAL PLT MORPH; ANISOCYTOSIS 1+
[2018-09-13] MEDS: CARVEDILOL 25 MG TABLET PO SCH ×2 (06:13→17:21)
[2018-09-13] MEDS: BUDESONIDE 0.5 MG/2 ML INHA NPPB SCH ×2 (08:43→19:10)
[2018-09-13] MEDS: FAMOTIDINE 20 MG/2 ML IVPush SCH (08:52)
[2018-09-13] MEDS: INSULIN GLARGINE 100 UNITS/ML, PEN SQ-INSULIN SCH ×2 (08:53→22:05)
[2018-09-14] MEDS: HEPARIN 5,000 UNITS/ML, 1ML SQ SCH ×3 (00:25→17:28)
[2018-09-14] MEDS: ALBUTEROL/IPRATROPIUM 2.5MG/0.5MG, 3 ML NPPB SCH ×4 (02:16→20:48)
[2018-09-14 04:00] VITALS: BP 95/64
[2018-09-14 04:48] LABS: MEAN CORPUSCULAR HEMOGLOBIN 30.7 pg (27.5-34.5); MEAN CORPUSCULAR HGB CONC 32.3 g/dL (33.2-36.2); MEAN CORPUSCULAR VOLUME 95.2 fL (81-97); MEAN PLATELET VOLUME 9.1 fL (7.4-10.4); PLATELET COUNT 162 x10^3/uL (130-400); RED CELL DISTRIBUTION WIDTH 15.5 % (9.4-14.8)
[2018-09-14 04:57] LABS: ANION GAP 5 mmol/L (5-15); CALCIUM 8.4 mg/dL (8.5-10.1); CHLORIDE 102 mmol/L (98-107); CREATININE 1.65 mg/dL (0.7-1.3); TRIGLYCERIDES 463 mg/dL (50-200)
[2018-09-14] MEDS: PIPERACILLIN/TAZO/PMX 3.375GM 50 ML IV SCH ×4 (05:36→23:19)
[2018-09-14] MEDS: AcetaZOLAMIDE INJ 500 MG IVPush SCH (05:36)
[2018-09-14] MEDS: CARVEDILOL 25 MG TABLET PO SCH ×2 (05:36→18:00)
[2018-09-14] MEDS: INSULIN LISPRO SQ-INSULIN SCH ×4 (05:41→21:20)
[2018-09-14 05:45] LABS: MD YES
[2018-09-14 05:47] LABS: <PLATELET ESTIMATE> ADEQUATE; <PLT MORPHOLOGY> NORMAL PLT MORPH; ANISOCYTOSIS 1+; BAND#(MANUAL) 0.82 x10^3/uL; BANDS%(MANUAL) 4 % (0-7); EOS#(MANUAL) 0.62 x10^3/uL (0.0-0.4); EOS% (MANUAL) 3 % (1-7); LYMPH#(MANUAL) 1.03 x10^3/uL (1-3.4); LYMPHS% (MANUAL) 5 % (22-44); MONOS#(MANUAL) 1.03 x10^3/uL (0.3-2.7); MONOS% (MANUAL) 5 % (2-9); NRBC % (MANUAL) 1 % (0-1); POLYCHROMASIA 1+; SEGS% (MANUAL) 83 % (42-75)
[2018-09-14] MEDS ORDERED: ZIPRASIDONE 20 MG INJ IM PRN (08:30)
[2018-09-14] MEDS: BUDESONIDE 0.5 MG/2 ML INHA NPPB SCH ×2 (09:00→20:48)
[2018-09-14] MEDS: INSULIN GLARGINE 100 UNITS/ML, PEN SQ-INSULIN SCH ×2 (09:20→21:20)
[2018-09-14] MEDS: LACTULOSE 20 GM/30 ML UDC NG PRN (11:13)
[2018-09-14 18:13] VITALS: BP 114/74
[2018-09-14 19:14] VITALS: BP 103/64
[2018-09-15 01:15] VITALS: BP 104/68
[2018-09-15] MEDS: HEPARIN 5,000 UNITS/ML, 1ML SQ SCH ×3 (01:41→17:39)
[2018-09-15] MEDS: ALBUTEROL/IPRATROPIUM 2.5MG/0.5MG, 3 ML NPPB SCH ×5 (02:48→22:00)
[2018-09-15] MEDS: INSULIN LISPRO SQ-INSULIN SCH ×4 (05:02→20:35)
[2018-09-15 05:06] VITALS: BP 96/60
[2018-09-15] MEDS: CARVEDILOL 25 MG TABLET PO SCH ×2 (05:06→16:48)
[2018-09-15 06:00] LABS: MEAN CORPUSCULAR HEMOGLOBIN 31.3 pg (27.5-34.5); MEAN CORPUSCULAR HGB CONC 32.2 g/dL (33.2-36.2); MEAN CORPUSCULAR VOLUME 97.4 fL (81-97); MEAN PLATELET VOLUME 9.1 fL (7.4-10.4); PLATELET COUNT 126 x10^3/uL (130-400); RED BLOOD COUNT 4.28 x10^6/uL (4.38-5.82); RED CELL DISTRIBUTION WIDTH 15.8 % (9.4-14.8)
[2018-09-15 06:05] LABS: CHLORIDE 104 mmol/L (98-107)
[2018-09-15 06:11] LABS: ANION GAP 9 mmol/L (5-15); CALCIUM 8.3 mg/dL (8.5-10.1); CREATININE 1.72 mg/dL (0.7-1.3)
[2018-09-15 06:19] LABS: MD YES
[2018-09-15 06:21] LABS: <PLATELET ESTIMATE> DECREASED; <PLT MORPHOLOGY> NORMAL PLT MORPH; ANISOCYTOSIS 1+; BAND#(MANUAL) 0.43 x10^3/uL; BANDS%(MANUAL) 3 % (0-7); EOS#(MANUAL) 1.15 x10^3/uL (0.0-0.4); EOS% (MANUAL) 8 % (1-7); LYMPH#(MANUAL) 0.72 x10^3/uL (1-3.4); LYMPHS% (MANUAL) 5 % (22-44); METAMYELOCYTES# (MANUAL) 0.14 x10^3/uL (0-0); METAMYELOCYTES% (MANUAL) 1 % (0-1); MONOS#(MANUAL) 0.43 x10^3/uL (0.3-2.7); MONOS% (MANUAL) 3 % (2-9); MYELOCYTES# (MANUAL) 0.14 x10^3/uL (0-0); MYELOCYTES% (MANUAL) 1 % (0-0); POLYCHROMASIA 1+; SEG#(MANUAL) 11.38 x10^3/uL (1.8-6.8); SEGS% (MANUAL) 79 % (42-75)
[2018-09-15] MEDS ORDERED: ALBUTEROL/IPRATROPIUM 2.5MG/0.5MG, 3 ML NPPB SCH (07:00)
[2018-09-15 08:57] VITALS: BP 107/64
[2018-09-15] MEDS: BUDESONIDE 0.5 MG/2 ML INHA NPPB SCH ×2 (09:00→18:00)
[2018-09-15] MEDS: INSULIN GLARGINE 100 UNITS/ML, PEN SQ-INSULIN SCH ×2 (09:43→20:35)
[2018-09-15 15:48] VITALS: BP 106/63
--- NOTE | 2018-09-15 16:02 | NUR ---
REC: NPO with NGT except ice with 1:1 supervision; swallow recommendations posted in room Addendum: 09/15/18 at 1602 by Roseanne CORADO Amended: Links added.
[2018-09-15 19:47] VITALS: BP 112/64
[2018-09-16] MEDS: HEPARIN 5,000 UNITS/ML, 1ML SQ SCH ×2 (01:00→09:00)
[2018-09-16 01:29] VITALS: BP 112/68
[2018-09-16] MEDS: INSULIN LISPRO SQ-INSULIN SCH ×3 (05:00→16:45)
[2018-09-16] MEDS: CARVEDILOL 25 MG TABLET PO SCH ×2 (05:02→19:47)
[2018-09-16 05:27] LABS: CALCIUM 8.6 mg/dL (8.5-10.1)
[2018-09-16 05:28] LABS: BASOPHILS # (AUTO) 0.05 x10^3/uL (0-0.1); BASOPHILS % (AUTO) 0 % (0-1); EOSINOPHILS # (AUTO) 0.97 x10^3/uL (0-0.4); EOSINOPHILS % (AUTO) 8 % (1-7); LYMPHOCYTES # (AUTO) 1.36 x10^3/uL (1-3.4); LYMPHOCYTES % (AUTO) 11 % (22-44); MD NO; MEAN CORPUSCULAR HEMOGLOBIN 31.3 pg (27.5-34.5); MEAN CORPUSCULAR HGB CONC 32.3 g/dL (33.2-36.2); MEAN CORPUSCULAR VOLUME 96.8 fL (81-97); MEAN PLATELET VOLUME 9.4 fL (7.4-10.4); MONOCYTES # (AUTO) 0.96 x10^3/uL (0.2-0.8); MONOCYTES % (AUTO) 7 % (2-9); NEUTROPHILS # (AUTO) 9.56 x10^3/uL (1.8-6.8); NEUTROPHILS % (AUTO) 74 % (42-75); PLATELET COUNT 173 x10^3/uL (130-400); RED BLOOD COUNT 3.98 x10^6/uL (4.38-5.82); RED CELL DISTRIBUTION WIDTH 15.7 % (9.4-14.8)
[2018-09-16 05:35] LABS: ANION GAP 5 mmol/L (5-15); CHLORIDE 105 mmol/L (98-107)
[2018-09-16] MEDS: BUDESONIDE 0.5 MG/2 ML INHA NPPB SCH ×2 (07:05→18:47)
[2018-09-16] MEDS: ALBUTEROL/IPRATROPIUM 2.5MG/0.5MG, 3 ML NPPB SCH ×5 (07:05→22:00)
[2018-09-16] MEDS: INSULIN GLARGINE 100 UNITS/ML, PEN SQ-INSULIN SCH ×2 (09:00→20:07)
[2018-09-16 09:08] VITALS: BP 109/62
[2018-09-16 14:03] VITALS: BP 120/73
[2018-09-16 19:44] VITALS: BP 129/73
[2018-09-17 03:03] VITALS: BP 139/77
[2018-09-17 05:43] LABS: BASOPHILS # (AUTO) 0.01 x10^3/uL (0-0.1); BASOPHILS % (AUTO) 0 % (0-1); EOSINOPHILS # (AUTO) 0.41 x10^3/uL (0-0.4); EOSINOPHILS % (AUTO) 3 % (1-7); LYMPHOCYTES # (AUTO) 1.32 x10^3/uL (1-3.4); LYMPHOCYTES % (AUTO) 11 % (22-44); MD NO; MEAN CORPUSCULAR HEMOGLOBIN 31.5 pg (27.5-34.5); MEAN CORPUSCULAR HGB CONC 32.4 g/dL (33.2-36.2); MEAN CORPUSCULAR VOLUME 97.3 fL (81-97); MEAN PLATELET VOLUME 9.2 fL (7.4-10.4); MONOCYTES # (AUTO) 1.14 x10^3/uL (0.2-0.8); MONOCYTES % (AUTO) 9 % (2-9); NEUTROPHILS # (AUTO) 9.39 x10^3/uL (1.8-6.8); NEUTROPHILS % (AUTO) 77 % (42-75); PLATELET COUNT 170 x10^3/uL (130-400); RED BLOOD COUNT 3.97 x10^6/uL (4.38-5.82); RED CELL DISTRIBUTION WIDTH 15.7 % (9.4-14.8)
[2018-09-17 05:55] LABS: ANION GAP 3 mmol/L (5-15); CALCIUM 8.4 mg/dL (8.5-10.1); CHLORIDE 104 mmol/L (98-107)
[2018-09-17 05:57] LABS: CREATININE 1.03 mg/dL (0.7-1.3); TRIGLYCERIDES 427 mg/dL (50-200)
[2018-09-17] MEDS: ALBUTEROL/IPRATROPIUM 2.5MG/0.5MG, 3 ML NPPB SCH ×5 (06:00→22:00)
[2018-09-17] MEDS: INSULIN LISPRO SQ-INSULIN SCH ×4 (06:00→17:31)
[2018-09-17 06:18] VITALS: BP 121/72
[2018-09-17] MEDS: CARVEDILOL 25 MG TABLET PO SCH ×2 (06:28→17:31)
[2018-09-17 08:28] VITALS: BP 122/55
[2018-09-17] MEDS: BUDESONIDE 0.5 MG/2 ML INHA NPPB SCH ×2 (09:00→19:30)
[2018-09-17] MEDS: INSULIN GLARGINE 100 UNITS/ML, PEN SQ-INSULIN SCH ×2 (09:36→22:33)
[2018-09-17 13:17] VITALS: BP 137/77
[2018-09-17] MEDS ORDERED: GUAIFENESIN 100 MG/5 ML, 5ML UDC PO/NG PRN (15:00)
[2018-09-17 21:30] VITALS: BP 126/80
[2018-09-18 02:09] VITALS: BP 124/70
[2018-09-18] MEDS: INSULIN LISPRO SQ-INSULIN SCH ×4 (04:00→22:00)
[2018-09-18] MEDS: CARVEDILOL 25 MG TABLET PO SCH ×2 (05:16→18:27)
[2018-09-18 05:50] LABS: BASOPHILS # (AUTO) 0.15 x10^3/uL (0-0.1); BASOPHILS % (AUTO) 1 % (0-1); EOSINOPHILS # (AUTO) 0.31 x10^3/uL (0-0.4); EOSINOPHILS % (AUTO) 2 % (1-7); LYMPHOCYTES # (AUTO) 1.11 x10^3/uL (1-3.4); LYMPHOCYTES % (AUTO) 6 % (22-44); MD NO; MEAN CORPUSCULAR HEMOGLOBIN 31.4 pg (27.5-34.5); MEAN CORPUSCULAR HGB CONC 32.3 g/dL (33.2-36.2); MEAN CORPUSCULAR VOLUME 97.2 fL (81-97); MONOCYTES % (AUTO) 8 % (2-9); NEUTROPHILS # (AUTO) 14.51 x10^3/uL (1.8-6.8); NEUTROPHILS % (AUTO) 83 % (42-75); PLATELET COUNT 203 x10^3/uL (130-400); RED BLOOD COUNT 3.94 x10^6/uL (4.38-5.82); RED CELL DISTRIBUTION WIDTH 15.5 % (9.4-14.8)
[2018-09-18 05:58] LABS: ANION GAP 0 mmol/L (5-15); CALCIUM 9.3 mg/dL (8.5-10.1); CHLORIDE 106 mmol/L (98-107)
[2018-09-18 05:59] LABS: CREATININE 0.87 mg/dL (0.7-1.3)
[2018-09-18] MEDS: BUDESONIDE 0.5 MG/2 ML INHA NPPB SCH ×2 (06:35→18:50)
[2018-09-18] MEDS ORDERED: ALBUTEROL/IPRATROPIUM 2.5MG/0.5MG, 3 ML NPPB SCH (07:00)
[2018-09-18 07:40] VITALS: BP 127/69
[2018-09-18] MEDS: FENOFIBRATE 145 MG TABLET PO SCH (09:00)
[2018-09-18] MEDS: ALBUTEROL/IPRATROPIUM 2.5MG/0.5MG, 3 ML NPPB SCH ×4 (11:00→23:00)
[2018-09-18] MEDS: INSULIN GLARGINE 100 UNITS/ML, PEN SQ-INSULIN SCH ×2 (12:06→22:45)
[2018-09-18 12:52] VITALS: BP 113/70
[2018-09-18 15:08] LABS: FIO2 40 %
[2018-09-18 19:40] VITALS: BP 95/55
[2018-09-19 01:45] VITALS: BP 95/55
[2018-09-19] MEDS: ALBUTEROL/IPRATROPIUM 2.5MG/0.5MG, 3 ML NPPB SCH ×6 (02:40→23:00)
[2018-09-19] MEDS: INSULIN LISPRO SQ-INSULIN SCH ×4 (03:41→20:28)
[2018-09-19] MEDS: CARVEDILOL 25 MG TABLET PO SCH ×2 (05:22→17:13)
[2018-09-19 05:34] LABS: MEAN CORPUSCULAR HEMOGLOBIN 30.9 pg (27.5-34.5); MEAN CORPUSCULAR HGB CONC 32.1 g/dL (33.2-36.2); MEAN CORPUSCULAR VOLUME 96.2 fL (81-97); MEAN PLATELET VOLUME 8.7 fL (7.4-10.4); PLATELET COUNT 215 x10^3/uL (130-400); RED BLOOD COUNT 3.86 x10^6/uL (4.38-5.82); RED CELL DISTRIBUTION WIDTH 15.4 % (9.4-14.8)
[2018-09-19 05:43] LABS: ALBUMIN 2.6 g/dL (3.4-5.0); ANION GAP 1 mmol/L (5-15); CALCIUM 9.2 mg/dL (8.5-10.1); CHLORIDE 106 mmol/L (98-107)
[2018-09-19 05:47] LABS: ALANINE AMINOTRANSFERASE 63 U/L (12-78); ALKALINE PHOSPHATASE 64 U/L (45-117); BILIRUBIN,TOTAL 0.8 mg/dL (0.2-1.0); CREATININE 0.86 mg/dL (0.7-1.3); TOTAL PROTEIN 6.3 g/dL (6.4-8.2)
[2018-09-19 05:52] LABS: BASOPHILS # (AUTO) 0.06 x10^3/uL (0-0.1); BASOPHILS % (AUTO) 0 % (0-1); EOSINOPHILS # (AUTO) 0.34 x10^3/uL (0-0.4); EOSINOPHILS % (AUTO) 2 % (1-7); LYMPHOCYTES # (AUTO) 1.22 x10^3/uL (1-3.4); LYMPHOCYTES % (AUTO) 7 % (22-44); MD SCAN; MONOCYTES # (AUTO) 1.24 x10^3/uL (0.2-0.8); MONOCYTES % (AUTO) 7 % (2-9); NEUTROPHILS % (AUTO) 84 % (42-75)
[2018-09-19] MEDS: BUDESONIDE 0.5 MG/2 ML INHA NPPB SCH ×2 (06:26→18:31)
[2018-09-19 07:58] VITALS: BP 116/65
[2018-09-19] MEDS: FENOFIBRATE 145 MG TABLET PO SCH (09:50)
[2018-09-19] MEDS: INSULIN GLARGINE 100 UNITS/ML, PEN SQ-INSULIN SCH ×2 (09:51→20:28)
[2018-09-19 12:50] VITALS: BP 129/73
[2018-09-19 19:33] VITALS: BP 116/64
[2018-09-20 01:08] VITALS: BP 122/65
[2018-09-20] MEDS: ALBUTEROL/IPRATROPIUM 2.5MG/0.5MG, 3 ML NPPB SCH ×6 (03:00→22:50)
[2018-09-20] MEDS: INSULIN LISPRO SQ-INSULIN SCH ×4 (04:00→20:26)
[2018-09-20 05:56] LABS: MEAN CORPUSCULAR HEMOGLOBIN 31.6 pg (27.5-34.5); MEAN CORPUSCULAR HGB CONC 32.4 g/dL (33.2-36.2); MEAN CORPUSCULAR VOLUME 97.3 fL (81-97); MEAN PLATELET VOLUME 8.9 fL (7.4-10.4); PLATELET COUNT 218 x10^3/uL (130-400); RED BLOOD COUNT 3.63 x10^6/uL (4.38-5.82)
[2018-09-20 06:19] LABS: ALANINE AMINOTRANSFERASE 76 U/L (12-78); ALBUMIN 2.3 g/dL (3.4-5.0); ANION GAP 5 mmol/L (5-15); CALCIUM 8.7 mg/dL (8.5-10.1); CHLORIDE 105 mmol/L (98-107); CREATININE 0.77 mg/dL (0.7-1.3); TRIGLYCERIDES 138 mg/dL (50-200)
[2018-09-20 06:20] LABS: BASOPHILS # (AUTO) 0.05 x10^3/uL (0-0.1); BASOPHILS % (AUTO) 0 % (0-1); EOSINOPHILS # (AUTO) 0.36 x10^3/uL (0-0.4); EOSINOPHILS % (AUTO) 2 % (1-7); LYMPHOCYTES # (AUTO) 0.98 x10^3/uL (1-3.4); LYMPHOCYTES % (AUTO) 7 % (22-44); MD SCAN; MONOCYTES # (AUTO) 1.52 x10^3/uL (0.2-0.8); MONOCYTES % (AUTO) 10 % (2-9); NEUTROPHILS # (AUTO) 11.96 x10^3/uL (1.8-6.8); NEUTROPHILS % (AUTO) 81 % (42-75)
[2018-09-20 06:21] LABS: ALKALINE PHOSPHATASE 67 U/L (45-117); BILIRUBIN,TOTAL 0.8 mg/dL (0.2-1.0); TOTAL PROTEIN 6.1 g/dL (6.4-8.2)
[2018-09-20] MEDS: CARVEDILOL 25 MG TABLET PO SCH ×2 (06:24→18:00)
[2018-09-20 07:42] VITALS: BP 117/71
[2018-09-20] MEDS: BUDESONIDE 0.5 MG/2 ML INHA NPPB SCH ×2 (07:45→19:30)
[2018-09-20] MEDS: INSULIN GLARGINE 100 UNITS/ML, PEN SQ-INSULIN SCH ×2 (09:00→20:26)
[2018-09-20] MEDS: FENOFIBRATE 145 MG TABLET PO SCH (09:00)
[2018-09-20 12:12] VITALS: BP 124/74
--- NOTE | 2018-09-20 15:26 | NUR ---
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
[2018-09-20 19:15] VITALS: BP 124/69
[2018-09-20] MEDS ORDERED: FUROSEMIDE 20 MG/2 ML IV ONE (22:30)
[2018-09-21 01:21] VITALS: BP 146/80
[2018-09-21] MEDS: ALBUTEROL/IPRATROPIUM 2.5MG/0.5MG, 3 ML NPPB SCH ×6 (01:57→22:58)
[2018-09-21] MEDS: INSULIN LISPRO SQ-INSULIN SCH ×4 (04:18→20:08)
[2018-09-21 05:28] LABS: BASOPHILS # (AUTO) 0.03 x10^3/uL (0-0.1); BASOPHILS % (AUTO) 0 % (0-1); EOSINOPHILS % (AUTO) 4 % (1-7); LYMPHOCYTES # (AUTO) 1.01 x10^3/uL (1-3.4); LYMPHOCYTES % (AUTO) 9 % (22-44); MD NO; MEAN CORPUSCULAR HEMOGLOBIN 30.8 pg (27.5-34.5); MEAN CORPUSCULAR VOLUME 96.4 fL (81-97); MEAN PLATELET VOLUME 8.7 fL (7.4-10.4); MONOCYTES % (AUTO) 8 % (2-9); NEUTROPHILS # (AUTO) 9.18 x10^3/uL (1.8-6.8); NEUTROPHILS % (AUTO) 79 % (42-75); PLATELET COUNT 226 x10^3/uL (130-400); RED BLOOD COUNT 3.73 x10^6/uL (4.38-5.82)
[2018-09-21 05:29] LABS: ALBUMIN 2.4 g/dL (3.4-5.0); ANION GAP 2 mmol/L (5-15); CALCIUM 8.7 mg/dL (8.5-10.1); CHLORIDE 106 mmol/L (98-107)
[2018-09-21 05:32] LABS: ALANINE AMINOTRANSFERASE 64 U/L (12-78); ALKALINE PHOSPHATASE 70 U/L (45-117); BILIRUBIN,TOTAL 1.1 mg/dL (0.2-1.0); CREATININE 0.89 mg/dL (0.7-1.3); TOTAL PROTEIN 6.3 g/dL (6.4-8.2)
[2018-09-21] MEDS: CARVEDILOL 25 MG TABLET PO SCH ×2 (05:42→18:00)
[2018-09-21] MEDS: BUDESONIDE 0.5 MG/2 ML INHA NPPB SCH ×2 (07:36→19:05)
[2018-09-21 07:46] VITALS: BP 136/80
[2018-09-21] MEDS: FENOFIBRATE 145 MG TABLET PO SCH (09:00)
[2018-09-21] MEDS: INSULIN GLARGINE 100 UNITS/ML, PEN SQ-INSULIN SCH ×2 (09:00→20:08)
[2018-09-21 14:04] VITALS: BP 119/68
[2018-09-21 19:16] VITALS: BP 145/69
[2018-09-22 02:03] VITALS: BP 112/75
[2018-09-22] MEDS: ALBUTEROL/IPRATROPIUM 2.5MG/0.5MG, 3 ML NPPB SCH ×6 (03:20→22:21)
[2018-09-22] MEDS: INSULIN LISPRO SQ-INSULIN SCH ×4 (04:15→22:00)
[2018-09-22] MEDS: CARVEDILOL 25 MG TABLET PO SCH ×2 (06:44→17:39)
[2018-09-22] MEDS: BUDESONIDE 0.5 MG/2 ML INHA NPPB SCH ×2 (07:23→19:35)
[2018-09-22 07:44] VITALS: BP 105/62
[2018-09-22 08:01] LABS: BASOPHILS # (AUTO) 0.03 x10^3/uL (0-0.1); BASOPHILS % (AUTO) 0 % (0-1); EOSINOPHILS # (AUTO) 0.46 x10^3/uL (0-0.4); EOSINOPHILS % (AUTO) 5 % (1-7); LYMPHOCYTES # (AUTO) 0.91 x10^3/uL (1-3.4); LYMPHOCYTES % (AUTO) 9 % (22-44); MD NO; MEAN CORPUSCULAR HEMOGLOBIN 30.7 pg (27.5-34.5); MEAN CORPUSCULAR VOLUME 96.1 fL (81-97); MEAN PLATELET VOLUME 8.7 fL (7.4-10.4); MONOCYTES # (AUTO) 0.59 x10^3/uL (0.2-0.8); MONOCYTES % (AUTO) 6 % (2-9); NEUTROPHILS # (AUTO) 7.99 x10^3/uL (1.8-6.8); NEUTROPHILS % (AUTO) 80 % (42-75); PLATELET COUNT 251 x10^3/uL (130-400); RED BLOOD COUNT 3.62 x10^6/uL (4.38-5.82); RED CELL DISTRIBUTION WIDTH 15.9 % (9.4-14.8)
[2018-09-22 08:11] LABS: ALBUMIN 2.3 g/dL (3.4-5.0); ANION GAP 1 mmol/L (5-15); CALCIUM 8.4 mg/dL (8.5-10.1); CHLORIDE 103 mmol/L (98-107)
[2018-09-22 08:15] LABS: ALANINE AMINOTRANSFERASE 46 U/L (12-78); ALKALINE PHOSPHATASE 65 U/L (45-117); BILIRUBIN,TOTAL 1.1 mg/dL (0.2-1.0); CREATININE 0.95 mg/dL (0.7-1.3); TOTAL PROTEIN 6.3 g/dL (6.4-8.2)
[2018-09-22] MEDS: INSULIN GLARGINE 100 UNITS/ML, PEN SQ-INSULIN SCH ×2 (08:41→21:00)
[2018-09-22] MEDS: FENOFIBRATE 145 MG TABLET PO SCH (08:46)
[2018-09-22 14:00] VITALS: BP 100/60
[2018-09-22 18:26] VITALS: BP 145/73
[2018-09-23 00:55] VITALS: BP 99/58
[2018-09-23] MEDS: ALBUTEROL/IPRATROPIUM 2.5MG/0.5MG, 3 ML NPPB SCH ×4 (02:17→21:00)
[2018-09-23] MEDS: INSULIN LISPRO SQ-INSULIN SCH ×4 (04:00→20:33)
[2018-09-23] MEDS: CARVEDILOL 25 MG TABLET PO SCH ×2 (05:44→18:18)
[2018-09-23 06:05] LABS: BASOPHILS % (AUTO) 0 % (0-1); EOSINOPHILS # (AUTO) 0.59 x10^3/uL (0-0.4); EOSINOPHILS % (AUTO) 6 % (1-7); LYMPHOCYTES # (AUTO) 0.95 x10^3/uL (1-3.4); LYMPHOCYTES % (AUTO) 9 % (22-44); MD NO; MEAN CORPUSCULAR HEMOGLOBIN 31.3 pg (27.5-34.5); MEAN CORPUSCULAR HGB CONC 32.1 g/dL (33.2-36.2); MEAN CORPUSCULAR VOLUME 97.6 fL (81-97); MEAN PLATELET VOLUME 8.7 fL (7.4-10.4); MONOCYTES # (AUTO) 0.59 x10^3/uL (0.2-0.8); MONOCYTES % (AUTO) 6 % (2-9); NEUTROPHILS % (AUTO) 80 % (42-75); PLATELET COUNT 245 x10^3/uL (130-400); RED BLOOD COUNT 3.74 x10^6/uL (4.38-5.82); RED CELL DISTRIBUTION WIDTH 15.5 % (9.4-14.8)
[2018-09-23 06:12] LABS: ANION GAP 0 mmol/L (5-15); CALCIUM 8.5 mg/dL (8.5-10.1); CHLORIDE 101 mmol/L (98-107)
[2018-09-23 06:13] LABS: CREATININE 0.85 mg/dL (0.7-1.3); TRIGLYCERIDES 174 mg/dL (50-200)
[2018-09-23] MEDS: BUDESONIDE 0.5 MG/2 ML INHA NPPB SCH ×2 (06:45→21:00)
[2018-09-23 07:45] VITALS: BP 123/72
[2018-09-23] MEDS: FENOFIBRATE 145 MG TABLET PO SCH (08:19)
[2018-09-23] MEDS: INSULIN GLARGINE 100 UNITS/ML, PEN SQ-INSULIN SCH ×2 (08:19→20:33)
[2018-09-23 11:27] LABS: BASOPHILS # (AUTO) 0.02 x10^3/uL (0-0.1); BASOPHILS % (AUTO) 0 % (0-1); EOSINOPHILS # (AUTO) 0.41 x10^3/uL (0-0.4); EOSINOPHILS % (AUTO) 5 % (1-7); LYMPHOCYTES # (AUTO) 1.05 x10^3/uL (1-3.4); LYMPHOCYTES % (AUTO) 12 % (22-44); MD NO; MEAN CORPUSCULAR HEMOGLOBIN 30.5 pg (27.5-34.5); MEAN CORPUSCULAR HGB CONC 31.9 g/dL (33.2-36.2); MEAN CORPUSCULAR VOLUME 95.7 fL (81-97); MEAN PLATELET VOLUME 8.3 fL (7.4-10.4); MONOCYTES # (AUTO) 0.38 x10^3/uL (0.2-0.8); MONOCYTES % (AUTO) 4 % (2-9); NEUTROPHILS # (AUTO) 7.04 x10^3/uL (1.8-6.8); NEUTROPHILS % (AUTO) 79 % (42-75); PLATELET COUNT 248 x10^3/uL (130-400); RED BLOOD COUNT 3.74 x10^6/uL (4.38-5.82); RED CELL DISTRIBUTION WIDTH 15.4 % (9.4-14.8)
[2018-09-23 13:47] VITALS: BP 124/71
[2018-09-23 19:20] VITALS: BP 136/67
[2018-09-24 00:25] VITALS: BP 128/70
[2018-09-24] MEDS: ALBUTEROL/IPRATROPIUM 2.5MG/0.5MG, 3 ML NPPB SCH ×3 (02:56→14:44)
[2018-09-24] MEDS: INSULIN LISPRO SQ-INSULIN SCH ×2 (04:00→10:00)
[2018-09-24 05:55] LABS: BASOPHILS # (AUTO) 0.02 x10^3/uL (0-0.1); BASOPHILS % (AUTO) 0 % (0-1); EOSINOPHILS # (AUTO) 0.48 x10^3/uL (0-0.4); EOSINOPHILS % (AUTO) 7 % (1-7); LYMPHOCYTES # (AUTO) 1.24 x10^3/uL (1-3.4); LYMPHOCYTES % (AUTO) 19 % (22-44); MD NO; MEAN CORPUSCULAR HEMOGLOBIN 30.8 pg (27.5-34.5); MEAN PLATELET VOLUME 8.4 fL (7.4-10.4); MONOCYTES # (AUTO) 0.56 x10^3/uL (0.2-0.8); MONOCYTES % (AUTO) 8 % (2-9); NEUTROPHILS # (AUTO) 4.41 x10^3/uL (1.8-6.8); NEUTROPHILS % (AUTO) 66 % (42-75); PLATELET COUNT 216 x10^3/uL (130-400); RED BLOOD COUNT 3.47 x10^6/uL (4.38-5.82); RED CELL DISTRIBUTION WIDTH 15.3 % (9.4-14.8)
[2018-09-24 05:56] LABS: ALBUMIN 2.2 g/dL (3.4-5.0); CALCIUM 8.2 mg/dL (8.5-10.1); CHLORIDE 104 mmol/L (98-107)
[2018-09-24 06:00] LABS: ALANINE AMINOTRANSFERASE 29 U/L (12-78); ALKALINE PHOSPHATASE 56 U/L (45-117); ANION GAP 0 mmol/L (5-15); BILIRUBIN,TOTAL 0.6 mg/dL (0.2-1.0); CREATININE 0.93 mg/dL (0.7-1.3); TOTAL PROTEIN 6.1 g/dL (6.4-8.2)
[2018-09-24] MEDS: CARVEDILOL 25 MG TABLET PO SCH (06:22)
[2018-09-24] MEDS: BUDESONIDE 0.5 MG/2 ML INHA NPPB SCH (07:31)
[2018-09-24 08:12] VITALS: BP 111/63
[2018-09-24] MEDS: FENOFIBRATE 145 MG TABLET PO SCH (08:22)
[2018-09-24] MEDS: INSULIN GLARGINE 100 UNITS/ML, PEN SQ-INSULIN SCH (08:25)
[2018-09-24] MEDS ORDERED: METF500T PO (13:23)
[2018-09-24] MEDS ORDERED: POTA10CA PO (13:24)
[2018-09-24 14:19] VITALS: BP 115/57
== END 2018-09-24 15:45 | disposition home health service (06) | DRG 870 ==
LOC: ED 21:49 → EDIP 22:21 → ICU 09-06 00:37 → CCU 09-09 06:20 → 3NE 09-14 18:16
PROVIDERS: ADMIT Internal Medicine; ATTEND Internal Medicine
PROC: 5A1955Z Respiratory Ventilation, Greater than 96 Consecutive Hours (ICD-10-PCS; principal; 2018-09-05)
PROC: 0BH17EZ Insertion of Endotracheal Airway into Trachea, Via Natural or Artificial Opening (ICD-10-PCS; 2018-09-05)
PROC: 0T9B70Z Drainage of Bladder with Drainage Device, Via Natural or Artificial Opening (ICD-10-PCS; 2018-09-05)
DX: A41.9 Sepsis, unspecified organism (principal); J96.21 Acute and chronic respiratory failure with hypoxia; J69.0 Pneumonitis due to inhalation of food and vomit; I50.33 Acute on chronic diastolic (congestive) heart failure; G93.41 Metabolic encephalopathy; N17.0 Acute kidney failure with tubular necrosis; J44.1 Chronic obstructive pulmonary disease with (acute) exacerbation; I13.0 Hypertensive heart and chronic kidney disease with heart failure and stage 1 through stage 4 chronic kidney disease, or unspecified chronic kidney disease; E87.1 Hypo-osmolality and hyponatremia; Z99.11 Dependence on respirator [ventilator] status; K59.00 Constipation, unspecified; R53.81 Other malaise; N18.9 Chronic kidney disease, unspecified; E11.22 Type 2 diabetes mellitus with diabetic chronic kidney disease; E11.65 Type 2 diabetes mellitus with hyperglycemia; E78.1 Pure hyperglyceridemia; E87.6 Hypokalemia; G47.33 Obstructive sleep apnea (adult) (pediatric); K80.20 Calculus of gallbladder without cholecystitis without obstruction; N40.0 Benign prostatic hyperplasia without lower urinary tract symptoms; R13.10 Dysphagia, unspecified; R65.20 Severe sepsis without septic shock; Z79.899 Other long term (current) drug therapy; Z99.81 Dependence on supplemental oxygen; Z85.038 Personal history of other malignant neoplasm of large intestine; Z87.891 Personal history of nicotine dependence; Z90.49 Acquired absence of other specified parts of digestive tract
CPT/HCPCS: 32555; 36415; 36600; 71045; 71250; 74018; 74176; 74230; 80048; 80053; 81001; 82803; 82962; 83605; 83735; 83880; 83935; 84100; 84478; 84484; 85025; 85610; 85730; 87040; 87070; 87081; 87205; 93005; 94002; 94003; 94150; 94640; 94660; 94667; 94668; G0378; J1644; J1940; J2250; J2543; J2704; J3010; J3370; J3480; J3486; J7613; J7620; J7626; J0330; J0360; J1120; J1815; J2920; J2930; J3490; J7030; J7040; J7050